=== PATIENT | male | born 2000 | race Caucasian/White ===

== ENCOUNTER 2019-04-02 09:25 | Emergency (ER) | payer OTHER ==
[2019-04-02] MEDS ORDERED: Tetan/Diph/Pertus SYR(Tdap)* 0.5 ML SYR(BOOSTRIX) use SYR contains LATEX IM ONE (10:16)
--- NOTE | 2019-04-02 10:16 | ED ---
Laceration/Wound HPI - HPI Summary HPI Summary: 18-year-old right-hand dominant male with no significant past medical history and not taking blood thinners presented to the emergency department today with a chief complaint of a laceration to the tip of his left ring finger. He states morning approximately one hour ago at 0900 he was working on and art Project and cut his finger with an [employer] knife. He states he has 4 out of 10 pain to the tip of his finger. Patient denies anticoagulation or bleeding disorder. Patient has full range of motion with no involvement of the nailbed. Patient states his last tetanus was 6 years ago. Patient denies chest pain, shortness of breath, abdominal pain, fever. - History of Current Complaint Stated Complaint: FINGER INJURY PER PT Time Seen by Provider: 04/02/19 10:07 Hx Obtained From: Patient Onset/Duration: Sudden Onset - And began this morning Aggravating: Movement Alleviating: Nothing Timing: Constant Onset Severity: Moderate Current Severity: Severe Pain Intensity: 8 Pain Scale Used: 0-10 Numeric Associated Signs & Symptoms: Pain - Allergy/Home Medications Allergies/Adverse Reactions: Allergies Allergy/AdvReac Type Severity Reaction Status Date / Time No Known Allergies Allergy Verified 04/02/19 09:30 Home Medications: Home Medications Cefadroxil CAP* 2 cap PO DAILY 04/02/19 [History Confirmed 04/02/19] Zoloft 75 mg PO DAILY 04/02/19 [History Confirmed 04/02/19] PMH/Surg Hx/FS Hx/Imm Hx Infectious Disease History: No Infectious Disease History: Denies: Traveled Outside the [place] in Last 30 Days - Social History Alcohol Use: Occasionally Substance Use Type: Reports: None Smoking Status (MU): Never Smoked Tobacco Review of Systems Constitutional: Negative Cardiovascular: Negative Respiratory: Negative Psychological: Normal All Other Systems Reviewed And Are Negative: Yes Physical Exam Triage Information Reviewed: Yes Vital Signs On Initial Exam: Initial Vitals Temp Pulse Resp BP Pulse Ox 96.4 F 86 22 98/60 99 04/02/19 09:27 04/02/19 09:27 04/02/19 09:27 04/02/19 09:27 04/02/19 09:27 Vital Signs Reviewed: Yes Appearance: Positive: Well-Appearing, Well-Nourished, Pain Distress Skin: Positive: Warm, Skin Color Reflects Adequate Perfusion, Other - Laceration noted to the anterior aspect of the distal fourth finger of the left hand with no involvement of the nailbed. Wound is bleeding currently as slow rate. Head/Face: Positive: Normal Head/Face Inspection Eyes: Positive: Normal, EOMI ENT: Positive: Hearing grossly normal Respiratory/Lung Sounds: Positive: Clear to Auscultation, Breath Sounds Present Cardiovascular: Positive: Normal, RRR, S1, S2 Psychiatric: Positive: Normal AVPU Assessment: Alert Procedures - Sedation Patient Received Moderate/Deep Sedation with Procedure: No Diagnostics - Vital Signs Vital Signs Temp Pulse Resp BP Pulse Ox 04/02/19 09:27 96.4 F 86 22 98/60 99 - Laboratory Lab Statement: Any lab studies that have been ordered have been reviewed, and results considered in the medical decision making process. Laceration Repair Course/Dx - Course Course Of Treatment: Patient was evaluated in the emergency department for a avulsion laceration to the distal anterior aspect of the left fourth digit. The patient was seen and evaluated. The patient's laceration was managed using Dermabond glue. A [place] drain was used as a tourniquet to slow bleeding and then skin glue was applied to the laceration. The glue was allowed to dry and then a dressing using tube gauze was placed over the digit. Patient tolerated procedure well with minimal blood loss. The patient was instructed in how to care for his wound. He is instructed to take ibuprofen for pain. The patient is to follow-up with his [facility] in 2-3 days for wound check. During his stay his tetanus vaccination was updated. He was informed to return to the emergency department if his symptoms worsen or he develops any new symptoms. He agrees with plan. - Differential Dx Differental Diagnoses: Abrasion, Laceration - Clinical Impression Provider Diagnoses: Laceration Discharge ED - Sign-Out/Discharge Documenting (check all that apply): Patient Departure - Discharge Plan Condition: Improved Disposition: HOME Patient Education Materials: Laceration (ED) Forms: *School Release Referrals: [facility] [Primary Care Provider] - 3 Days Additional Instructions: You were seen in the emergency department today for a laceration to your finger. Please keep dressing dry and intact for 24 hours. After this point you may remove the dressing and wash your wound with warm soapy water. After washing your wound pat dry and cover with gauze. The glue covering your wound will dissolve on its own when it is ready. You may take ibuprofen 600 mg every 6 hours for pain for one week. Return to activity as tolerated. Follow up for wound check at your [facility] in 3 days. If your symptoms worsen or you develop any new symptoms please return to the emergency Department immediately. - Billing Disposition and Condition Condition: IMPROVED Disposition: Home
[2019-04-02 11:08] VITALS: BP 136/84
== END 2019-04-02 11:05 | disposition home or self-care (01) ==
LOC: ED 09:25
DX: S61.215A Laceration without foreign body of left ring finger without damage to nail, initial encounter (principal); Z23 Encounter for immunization; W27.5XXA Contact with paper-cutter, initial encounter; Y92.9 Unspecified place or not applicable; Z79.899 Other long term (current) drug therapy
CPT/HCPCS: 90471; 90715; 99283